=== PATIENT | male | born 1995 | race Caucasian/White ===

== ENCOUNTER 2023-01-11 21:16 | Emergency (ER) | payer MEDICAID ==
[~2023-01-11] VITALS: Ht 175.3 cm; Wt 70.3 kg
[2023-01-11 21:22] VITALS: BP 120/96
== END 2023-01-11 23:03 | disposition home or self-care (01) ==
LOC: ER 21:16 → EDBD 21:16 → ER 23:03
DX: S80.02XA Contusion of left knee, initial encounter (principal); S83.92XA Sprain of unspecified site of left knee, initial encounter; W55.22XA Struck by cow, initial encounter
CPT/HCPCS: 29505; 73562-LT; 96372-59; 99283-25; A9270; J1885